=== PATIENT | male | born 1995 ===

== ENCOUNTER 2017-01-28 14:25 | Emergency (ER) | payer OTHER ==
--- NOTE | 2017-01-28 15:36 | UC ---
Complaint Male HPI - HPI Summary HPI Summary: complaint of feeling a tickling sesation with urination that started 2 weeks ago had some pain with urinating for 2 days that resolved urine to seems cloudy for several weeks feels strange to urinate- no increase in frequency urgency denies penile discharge, itching lesions, denies pain in scrotum denies back pain, abdominal pain, fever - History of Current Complaint Chief Complaint: UCSTDScreening Stated Complaint: STD TESTING Time Seen by Provider: 01/28/17 15:16 Hx Obtained From: Patient - Allergies/Home Medications Allergies/Adverse Reactions: Allergies Allergy/AdvReac Type Severity Reaction Status Date / Time No Known Allergies Allergy Verified 01/28/17 14:44 Home Medications: Home Medications NK [No Home Medications Reported] 01/28/17 [History Confirmed 01/28/17] PMH/Surg Hx/FS Hx/Imm Hx Previously Healthy: Yes - Surgical History Surgical History: None - Family History Known Family History: Positive: Hypertension - father Negative: Cardiac Disease, Diabetes - Social History Occupation: Student Alcohol Use: Occasionally Substance Use Type: None Smoking Status (MU): Current Some Day Smoker Type: Cigarettes Cessation Counseling: Patient Advised to Stop Review of Systems Constitutional: Negative Skin: Negative Eyes: Negative ENT: Negative Respiratory: Negative Cardiovascular: Negative Gastrointestinal: Negative Genitourinary: Negative Motor: Negative Neurovascular: Negative Musculoskeletal: Negative Neurological: Negative Psychological: Negative All Other Systems Reviewed And Are Negative: Yes Physical Exam Triage Information Reviewed: Yes Appearance: No Pain Distress, Well-Nourished Vital Signs: Initial Vital Signs Temp 98.3 F 01/28/17 14:45 Pulse 78 01/28/17 14:45 Resp 16 01/28/17 14:45 BP 169/79 01/28/17 14:45 Pulse Ox 99 01/28/17 14:45 Vital Signs Reviewed: Yes Eyes: Positive: Conjunctiva Clear ENT: Positive: Pharynx normal, TMs normal Neck: Positive: No Lymphadenopathy Respiratory: Positive: Lungs clear, Normal breath sounds, No respiratory distress Cardiovascular: Positive: RRR, No Murmur, Pulses Normal Abdomen Description: Positive: Nontender, No Organomegaly. Negative: CVA Tenderness (R), CVA Tenderness (L), Distended, Guarding Bowel Sounds: Positive: Present Musculoskeletal Exam: Normal Neurological: Positive: Alert Psychological Exam: Normal Skin Exam: Normal Complaint Male Course/Dx - Course Course Of Treatment: will treat for presumptive chlamydia. refuses other STD testing at this time. - Differential Dx/Diagnosis Differential Diagnosis/HQI/PQRI: Urinary Tract Infection, Other - chlamydia Provider Diagnoses: elevated blood pressure, STD testing Discharge - Discharge Plan Condition: Stable Disposition: HOME Patient Education Materials: Safe Sex (ED), Sexually Transmitted Diseases (ED) Referrals: No Primary Care Phys,NOPCP [Primary Care Provider] - Additional Instructions: Your blood pressure is elevated. Please contact your primary care provider within 1 day -4 weeks for further evaluation. Please review your discharge instructions. If your symptoms do not improve please call your primary care provider or return to urgent care
[2017-01-28] MEDS ORDERED: Azithromycin TAB* 250 MG PO ONE (15:59)
== END 2017-01-28 16:10 | disposition home or self-care (01) ==
LOC: UCEAST 14:25
DX: Z11.3 Encounter for screening for infections with a predominantly sexual mode of transmission (principal); R03.0 Elevated blood-pressure reading, without diagnosis of hypertension; F17.210 Nicotine dependence, cigarettes, uncomplicated; Z71.6 Tobacco abuse counseling
CPT/HCPCS: 81003; 87491; 87591; 99202; A9270-GY; G0463